=== PATIENT | male | born 1960 | race Two or more races ===

== ENCOUNTER 2023-02-16 11:25 | Emergency (ER) | payer OTHER ==
[~2023-02-16] VITALS: Ht 167.6 cm; Wt 76.4 kg
[2023-02-16 11:49] VITALS: TEMP 98.3
[2023-02-16] MEDS ORDERED: HYDROCHLOROTHIAZIDE 25 MG TABLET PO ONE (12:00)
[2023-02-16 12:47] VITALS: BP 151/89; PULSE 72; RESP 13
== END 2023-02-16 13:51 | disposition home or self-care (01) ==
LOC: EMS 11:25
DX: I10 Essential (primary) hypertension (principal); Z98.890 Other specified postprocedural states
CPT/HCPCS: 99283